=== PATIENT | female | born 1985 | race Caucasian/White ===

== ENCOUNTER 2017-03-20 11:46 | Emergency (ER) | payer OTHER ==
[~2017-03-20] VITALS: Ht 162.6 cm; Wt 163.0 kg
[2017-03-20 12:14] LABS: microscopic required? NO
[2017-03-20 12:26] LABS: urine erythrocyte NEGATIVE (NEGATIVE)
[2017-03-20 16:54] VITALS: BP 116/74
== END 2017-03-20 16:54 | disposition home or self-care (01) ==
LOC: ED 11:46
PROVIDERS: Emergency Medicine
DX: R30.0 Dysuria (principal); R10.30 Lower abdominal pain, unspecified; R35.0 Frequency of micturition; E03.9 Hypothyroidism, unspecified
CPT/HCPCS: 82962